=== PATIENT | male | born 2000 | race Caucasian/White ===

== ENCOUNTER 2021-12-10 22:57 | Emergency (ER) | payer BC, SELFPAY ==
--- NOTE | ~2021-12-10 | XR_ITS ---
EXAMINATION: XR ribs LT 2V w CXR 2V EXAM DATE: 12/11/2021 01:43 INDICATION: Pain, injury, left-sided lower rib pain. Initial encounter TECHNIQUE: Frontal projection of the upper left ribs, frontal projection of the lower left ribs, obli que projection of the left ribs, frontal and lateral chest x-ray(s) for interpretation. There is no prior study for comparison. FINDINGS: There are no displaced acute left rib fractures identified. There is no soft tissue abnor mality seen. No confluent consolidation, pneumothorax or pleural effusion suspected. Cardiomediasti nal silhouette is normal. IMPRESSION: No displaced left rib fractures. Reviewed, dictated and finalized at location D. R MANAGEMENT SPECIALIST
[2021-12-10 23:02] VITALS: BP 113/75; PULSE 82; RESP 18; TEMP 35.9; O2SAT 99
[2021-12-11 00:43] VITALS: RESP 18
--- NOTE | 2021-12-11 00:47 | PC.NURSE ---
states felt faint at home mother reports was pale and eyes where dilated
--- NOTE | 2021-12-11 01:08 | ECG_ITS ---
Measurements Intervals [place] Rate: 67 P: 30 DC: 141 QRS: 83 QRSD: 106 T: 43 QT: 382 QTc: 404 Interpretive Statements SINUS RHYTHM NORMAL ECG Electronically Signed On 12-11-2021 6:27:01 MOLDER INFLATED BALL by Celestino Leroy D.O.
--- NOTE | 2021-12-11 01:12 | ED.CHESTPAIN ---
HPI - Chest Pain General Chief Complaint: Syncope Stated Complaint: pain in left side, syncope Time Seen by Provider: 12/11/21 01:02 Source: patient Mode of arrival: ambulatory Limitations: no limitations History of Present Illness HPI narrative: Patient is a 21-year-old male complaining of left lower rib pain, worse with movement, palpation and deep breaths, 6 out of 10, sharp, nonradiating started 1 week ago. Patient states that he was in bed tonight when he coughed and turned a certain way, had severe pain in his left ribs causing him to almost pass out. Patient denies any syncope. Patient states that he does a lot of heavy lifting at work, possibly as a cause of his pain. Patient denies any shortness of breath, abdominal pain, nausea, vomiting, diaphoresis, fever or chills. Patient states that he is feeling better since the pain has decreased. Related Data Allergies Allergy/AdvReac Type Severity Reaction Status Date / Time No Known Allergies Allergy Unknown Unverified 05/13/19 13:58 Review of Systems Review of Systems: All systems reviewed & are unremarkable except as noted in HPI and below Constitutional: Constitutional: Denies body ache(s), Denies chills, Denies excessive sweating, Denies fatigue, Denies fever(s), Denies headache(s), Denies lethargy, Denies malaise, Denies weakness and Denies weight loss Eyes: Eyes: Denies blurry vision, Denies change in vision and Denies loss of vision ENT: Denies dizziness, Denies ear discharge, Denies headache(s), Denies lip swelling, Denies epistaxis, Denies nasal congestion, Denies neck pain, Denies throat swelling and Denies tongue swelling Cardiovascular: Cardiovascular: Denies diaphoresis, Denies rapid heart rate, Denies edema, Denies irregular heart rhythm, Denies lightheadedness, Denies palpitations, Denies dyspnea and Denies dyspnea on exertion Respiratory: Respiratory: Denies chest congestion, Denies cough, Denies hemoptysis, Denies dyspnea and Denies dyspnea on exertion Gastrointestinal: Gastrointestinal: Denies abdominal pain, Denies melena, Denies hematochezia, Denies diarrhea, Denies nausea, Denies vomiting and Denies hematemesis Musculoskeletal: Musculoskeletal: Denies abnormal gait, Denies deformity, Denies joint swelling, Denies limited range of motion, Denies neck pain and Denies numbness Neurologic: Denies Abnormal speech present, Denies abnormal gait, Denies confusion, Denies dizziness, Denies headache(s), Denies focal weakness, Denies loss of vision, Denies numbness, Denies Other visual disturbances, Denies Sensory deficit (Neuro) and Denies weakness Psychiatric: Psychiatric: Denies confusion, Denies depression, Denies auditory hallucinations, Denies homicidal ideation and Denies suicidal ideation Endocrine: Endocrine: Denies cold intolerance, Denies excessive sweating, Denies fatigue, Denies heat intolerance and Denies palpitations Hematologic/Lymphatic: Hematologic/Lymphatic: Denies easy bleeding and Denies easy bruising Allergic/Immunologic: Allergic/Immunologic: Denies lip swelling, Denies throat swelling and Denies tongue swelling PMFSH Comments Past medical history: None Family history: Negative for coronary disease or [place] Social history: Non-smoker no EtOH use occasional marijuana use Exam Const: General: cooperative, healthy appearing, comfortable, no acute distress, well developed, alert and awake; No confusion Orientation/consciousness: oriented to person, oriented to place, oriented to time, patient oriented x3 and No confusion Limitations: no limitations HENMT: Head: normal to inspection, normocephalic and atraumatic Ears: hearing grossly normal bilaterally, TM normal on the right and TM normal on the left General nose exam: Normal external nose present, Normal nares present and No nasal discharge present Face and sinus: normal facial exam Mouth: Yes Normal oral and palatal mucosa present, Yes lip normal, Yes tongue normal and Yes oropharynx normal Cesilia
[2021-12-11 02:30] VITALS: BP 115/57; PULSE 78; RESP 18; O2SAT 98
== END 2021-12-11 02:31 | disposition home or self-care (01) ==
PROVIDERS: Emergency Provider Emergency Medicine; PCP Family Medicine
DX: S23.41XA Sprain of ribs, initial encounter (principal); X50.0XXA Overexertion from strenuous movement or load, initial encounter
CPT/HCPCS: 71046; 71100; 93005; 99283

== ENCOUNTER 2025-06-21 15:57 | Emergency (ER) | payer OTHER, SELFPAY ==
--- NOTE | ~2025-06-21 | CT_ITS ---
EXAMINATION: CT abdomen pelvis w con DATE: 06/21/2025 17:32 INDICATION: Left-sided abdominal pain TECHNIQUE: Computed tomography (CT) of the abdomen and pelvis was performed with intravenous contrast. The dose-length product was 364.49 mGy-cm. COMPARISON: None. FINDINGS: Liver, spleen, adrenal glands, pancreas, gallbladder and kidneys are unremarkable. No renal calculi. Abdominal aorta is not aneurysmal. Bladder is unremarkable. No enlarged lymph nodes identified in the abdomen or pelvis. No free fluid in the abdomen or pelvis. Moderate amount of stool. No CT evidence for acute appendicitis. No dilated bowel loops. No CT evidence for colitis at this time. Mild concentric thickening of the owen of the stomach. Differential includes incomplete stomach wall distention or gastritis. Other etiologies are less likely. IMPRESSION: 1. Mild concentric thickening of the owen of the stomach. Differential includes incomplete stomach wall distention or gastritis. Other etiologies are less likely. Reviewed, dictated and finalized at location Q. IMPRESSION: 1. Mild concentric thickening of the owen of the stomach. Differential include s incomplete stomach wall distention or gastritis. Other etiologies are less li marlin.
--- NOTE | ~2025-06-21 | XR_ITS ---
EXAMINATION: XR chest 2V 06/21/2025 17:21 INDICATION: Chest pain PROCEDURE: 2 view chest COMPARISON: 12/11/2021 FINDINGS: The lungs are clear. The cardiomediastinal silhouette is within normal limits. There are no pleural effusions. There is no pneumothorax suspected. IMPRESSION: 1: NO ACUTE CARDIOPULMONARY DISEASE. Reviewed, dictated and finalized at location O.
[2025-06-21 15:58] VITALS: BP 167/100; PULSE 114; RESP 20; TEMP 36.7; O2SAT 100
[2025-06-21 16:30] VITALS: BP 154/86; PULSE 99; RESP 16; O2SAT 100
--- NOTE | 2025-06-21 16:33 | ECG_ITS ---
Test Date: 2025-06-21 16:55:42 Measurements Intervals [place] Rate: 65 P: 39 GA: 124 QRS: 90 QRSD: 116 T: 46 QT: 385 QTc: 402 Interpretive Statements SINUS RHYTHM WITH SINUS ARRHYTHMIA INCOMPLETE RIGHT BUNDLE BRANCH BLOCK BORDERLINE ECG No previous ECG available for comparison Electronically Signed On 06-21-2025 17:27:43 CDT by Celestino Leroy D.O.
--- NOTE | 2025-06-21 16:33 | ED.ABDPAIN ---
HPI - Abdominal Pain General Chief Complaint: Abdominal Pain Stated Complaint: abdominal pain X 6months Time Seen by Provider: 06/21/25 16:05 Source: patient Mode of arrival: ambulatory Limitations: no limitations History of Present Illness HPI narrative: This is a 25-year-old male that presents to the emergency department for chest pain/abdominal pain. Reports pain in the left upper quadrant/left lower chest. This is been an ongoing issue for for several months. Reports some associated shortness of breath. Denies fevers, cough, vomiting, diarrhea, lower extremity edema. Related Data Allergies Allergy/AdvReac Type Severity Reaction Status Date / Time No Known Allergies Allergy Unknown Verified 06/21/25 15:58 Review of Systems Review of Systems: All systems reviewed & are unremarkable except as noted in HPI and below PMFSH Past Medical History Medical History (Updated 06/21/25 @ 18:03 by Ngoc Chand PA-C) No active medical problems Exam Narrative: GENERAL: Well-appearing, well-nourished, and in no acute distress. HEAD: Normocephalic, atraumatic. EYES: EOMI. CHEST: Clear to auscultation. No respiratory distress. No wheezes rales or rhonchi. Tender to palpation over the left chest wall HEART: Regular rate and rhythm. No murmur heard. Normal peripheral pulses. ABDOMEN: Soft, nontender, nondistended, normal active bowel sounds. EXTREMITIES: Normal range of motion. No edema. SKIN: Warm, dry, no rash. NEURO: No focal deficits. Alert and oriented x3. PSYCH: Normal mood and affect Course Vital Signs Vital signs: Vital Signs Temperature 98.1 F 06/21/25 15:58 Pulse Rate 114 H 06/21/25 15:58 Respiratory Rate 20 06/21/25 15:58 Blood Pressure 167/100 H 06/21/25 15:58 Pulse Oximetry 100 06/21/25 15:58 Oxygen Delivery Room Air 06/21/25 15:58 Temperature 98.1 F 06/21/25 15:58 Pulse Rate 114 H 06/21/25 15:58 Respiratory Rate 20 06/21/25 15:58 Blood Pressure 167/100 H 06/21/25 15:58 Pulse Oximetry 100 06/21/25 15:58 Oxygen Delivery Room Air 06/21/25 15:58 MDM - Abdominal Pain MDM Narrative Medical decision making narrative: Patient presents the emergency department for abdominal/chest pain. Ongoing over the last several months. Patient is afebrile and nontoxic appearing. Tachycardic upon arrival, this normalized with IV fluids. CBC without leukocytosis. Metabolic panel without concerning findings. EKG without acute ST changes, baseline troponin is negative. D-dimer is not elevated. Chest x-ray without acute cardiopulmonary abnormality. CT abdomen and pelvis shows some gastritis. Patient updated on his workup and agrees with plan of care. He is to follow up with provider. He was given warnings to return to the ER Differential Diagnosis Differential diagnosis: Likely abdominal pain, diverticulitis and other (PE, pneumonia, muscle strain, costochondritis) Lab Data Attestation: I reviewed the patient's lab results. 06/21/25 16:35 06/21/25 16:35 Labs: Lab Results 06/21/25 06/21/25 06/21/25 Range/Units 16:35 16:35 16:37 WBC 9.0 (4.5-10.0) K/mm3 RBC 4.45 L (4.6-6.20) M/mm3 Hgb 13.8 L (14.0-18.0) g/dL Hct 38.8 L (42.0-52.0) % MCV 87.2 (80-100) fl MCH 31.0 (26-34) pg MCHC 35.6 (32-36) g/dl RDW 11.3 L (11.5-14.5) % Plt Count 224 (150-375) k/mm3 MPV 11.9 H (7.4-10.4) fl Immature Gran % (Auto) 0.2 (0-0.5) % Neut % (Auto) 61.3 (45.5-73.1) % Lymph % (Auto) 32.1 (18.3-44.2) % Parker % (Auto) 5.6 (2.6-8.5) % Eos % (Auto) 0.4 (0-4.4) % Baso % (Auto) 0.4 (0.2-1.2) % Lymph # (Auto) 2.87 (0.9-3.2) K/mm3 Parker # (Auto) 0.5 (0.1-0.6) K/mm3 Eos # (Auto) 0.0 (0-0.3) K/mm3 Baso # (Auto) 0.0 (0.0-0.1) K/mm3 Abs Immat Gran (auto) 0.02 (0.00-0.031) K/mm3 Absolute Neuts (auto) 5.5 (1.3-6.7) K/mm3 Absolute Nucleated RBC 0.000 (0.0-0.012) K/mm3 Nucleated RBC % 0.0 (0.0-0.2) % PT 14.4 (11.1-14.7) Seconds INR 1.1 APTT 27.8 (22.3-36.8) Seconds D-Dimer < 0.27 (<0.48) ug/mL Sodium 138 (137-145) mmol/L Potassium 3.7 (3.4-5.0) mmol/L Chloride 105 (98-107) mmol/L Carbon Dioxide 22 (22-30) mmol/L Anion Gap 11 (4-12) mmol/L BUN 10 (9-20) mg/dL Creatinine 0.94 (0.7-1.3) mg/dL Estim Creat Clear Calc 116 ml/min Estimated GFR > 60 (59 - ) Glucose 100 (65-110) mg/dL Calcium 9.9 (8.4-10.2) mg/dL Total Bilirubin 1.9 H (0.2-1.3) mg/dL AST 23 (17-59) U/L ALT 14 (6-50) U/L Alkaline Phosphatase 41 (38-126) U/L Troponin I < 0.012 Cancelled (0.000-0.034) ng/mL Total Protein 7.7 (6.3-8.2) g/dL Albumin 4.8 (3.5-5.1) g/dL Lipase 58 (23-300) U/L Urine Color Yellow (Yellow) Urine Appearance Cloudy H (Clear) Urine pH 7.0 (5.0-9.0) Ur Specific [place] 1.007 (1.001-1.035) Urine Protein Negative (Negative) mg/dL Urine Glucose (UA) Negative (Negative) mg/dL Urine Ketones 1+ H (Negative) mg/dL Ur Blood (Man) Negative (Negative) Urine Nitrate Negative (Negative) Urine Bilirubin Negative (Negative) Urine Urobilinogen 0.2 (<2.0) mg/dL Leukocyte Esterase Rfl Negative (Negative) SHAREE/UL Urine RBC 0-2 (0-2) /hpf Urine WBC 0-5 (0-3) /hpf Ur Squamous Epith Cells None seen (Few) /hpf Urine Bacteria None seen /hpf Urine Casts 0-2 Imaging Data Radiologist's impression: ITS Impressions Chest X-Ray 06/21/25 17:29 IMPRESSION: 1: NO ACUTE CARDIOPULMONARY DISEASE. Abdomen/Pelvis CT 06/21/25 17:44 IMPRESSION: 1. Mild concentric thickening of the owen of the stomach. Differential includes incomplete stomach wall distention or gastritis. Other etiologies are less likely. ECG Data EKG #1: ECG completion date: 06/21/25 normal rate, sinus rhythm, no ST changes and normal QT Critical Care Time Critical Care Time Critical Care Time: No Discharge Plan Discharge Clinical Impression: Gastritis Qualifiers: Gastritis type: unspecified gastritis Chronicity: acute Gastritis bleeding: without bleeding Qualified Code(s): K29.00 - Acute gastritis without bleeding Patient Disposition: Home Condition: Stable Instructions: Gastritis (ED), Diet for Stomach Ulcers and Gastritis (ED) Additional Instructions: Return to the ER if you experience fever, abdominal pain with nausea and vomiting, you are unable to keep down liquids or solids, or any other symptoms that are concerning to you Remain well hydrated. Avoid anti-inflammatories. Avoid spicy/acidic foods. Avoid eating just before bedtime. Take Pantoprazole as prescribed Follow up with primary care doctor Patient Language: Nepali Prescriptions: New pantoprazole 40 mg tablet,delayed release (DR/EC) 40 mg PO HS 28 Days Qty: 28 0RF Follow-up/Referrals: Melanie Ballesteros, CARE SERVICES MANAGER-C [Primary Care Provider, [facility]]
[2025-06-21] MEDS: SODIUM CHLORIDE 0.9% IV 1,000 ML 999 ML IV CONT (16:39)
[2025-06-21 16:44] LABS: Hematocrit 38.8 % (42.0-52.0); Hemoglobin 13.8 g/dL (14.0-18.0); Immature Granulocyte Percent A 0.2 % (0-0.5); Lymphocytes Absolute Auto 2.87 K/mm3 (0.9-3.2); Mean Corpuscular HGB Conc 35.6 g/dl (32-36); Mean Corpuscular Hemoglobin 31.0 pg (26-34); Mean Corpuscular Volume 87.2 fl (80-100); Nucleated Red Blood Cells Absolute Auto 0.000 K/mm3 (0.0-0.012); Nucleated Red Blood Cells Perc 0.0 % (0.0-0.2); Platelet Count Result 224 k/mm3 (150-375); Red Blood Count 4.45 M/mm3 (4.6-6.20); White Blood Count 9.0 K/mm3 (4.5-10.0)
[2025-06-21 16:52] LABS: Add Urine Microscopic? YES; Appearance Urine Cloudy (Clear); Glucose Urine UA Negative (Negative); Leukocyte Esterase Ur Negative LEU/UL (Negative); Nitrate Urine Negative (Negative); Non Pathogenic Casts 0-2; Specific Grav Ur 1.007 (1.001-1.035)
[2025-06-21 16:58] LABS: INR 1.1; Partial Thromboplastin Time 27.8 Seconds (22.3-36.8); Prothrombin Time 14.4 Seconds (11.1-14.7)
[2025-06-21 17:03] LABS: Alanine Aminotransferase 14 U/L (6-50); Albumin Level 4.8 g/dL (3.5-5.1); Alkaline Phosphatase 41 U/L (38-126); Anion Gap 11 mmol/L (4-12); Aspartate Amino Transferase 23 U/L (17-59); Bilirubin,Total 1.9 mg/dL (0.2-1.3); Blood Urea Nitrogen 10 mg/dL (9-20); Calcium 9.9 mg/dL (8.4-10.2); Carbon Dioxide 22 mmol/L (22-30); Chloride 105 mmol/L (98-107); Estimated CRCL calculation 116 ml/min; Estimated Glomerular Filt Rate > 60; Glucose 100 mg/dL (65-110); Lipase 58 U/L (23-300); Potassium 3.7 mmol/L (3.4-5.0); Sodium 138 mmol/L (137-145); Total Protein 7.7 g/dL (6.3-8.2)
[2025-06-21 17:15] LABS: Troponin I < 0.012 ng/mL (0.000-0.034)
[2025-06-21 17:30] VITALS: BP 144/90; PULSE 74; RESP 16; O2SAT 100
[2025-06-21] MEDS: KETOROLAC 15 MG/ML VIAL (*BKC) IV PUSH (17:39)
[2025-06-21 18:35] VITALS: BP 158/76; PULSE 80; RESP 16; O2SAT 96
== END 2025-06-21 18:35 | disposition home or self-care (01) ==
PROVIDERS: Emergency Provider Physician Assistant; PCP Nurse Practitioner Family
DX: K29.70 Gastritis, unspecified, without bleeding (principal); I45.10 Unspecified right bundle-branch block
CPT/HCPCS: 36415; 71046; 74177; 80053; 81001; 83690; 84484; 85025; 85380; 85610; 85730; 93005; 96361; 96374; 99284; J1885; J7030; Q9967